=== PATIENT | female | born 1940 | race Caucasian/White ===

== ENCOUNTER 2019-09-09 07:17 | Inpatient (IN) ==
[2019-09-09] MEDS ORDERED: DUONEB (A & A) ONE (07:33)
[2019-09-09] MEDS ORDERED: DUONEB (A & A) INH ONE (07:44)
[2019-09-09] MEDS ORDERED: ALBUTEROL NEB INH ONE (07:44)
[2019-09-09] MEDS ORDERED: PULMICORT INH ONE (07:44)
[2019-09-09] MEDS ORDERED: NS 500 ML IV ONE (07:46)
[2019-09-09] MEDS ORDERED: VANCOMYCIN 1 GM/NS 1 GM/250 ML IVPB IV ONE (07:46)
[2019-09-09] MEDS ORDERED: MAXIPIME 2 GM in NS 100 ML IV ONE (07:46)
[2019-09-09] MEDS ORDERED: NS 1,000 ML IV ONE (07:46)
[2019-09-09 07:56] LABS: ALLEN TEST YES; BE -0.9 mmoll (-3.0-3.0); BLOOD TYPE ARTERIAL; HCO3-(ACT) 24.1 mmoll (20.0-26.0); METHB 0.4 % (0.0-1.5); O2(CT) 15.1 mL/dL (15.0-23.0); O2HB 90.8 % (95.0-99.0); PCO2(98.6) 37 mmHg (35-45); PO2(98.6) 61 mmHg (60-100); SAMPLE BLOOD; SAO2 92.4 % (95.0-100.0); THB 11.8 g/dL (11.5-17.4); pH(98.6) 7.41 (7.35-7.45)
[2019-09-09 07:57] LABS: MODALITY NRB
--- NOTE | 2019-09-09 08:01 | PROVIDER DOCUMENTATION ---
HPI-Respiratory General - General Chief Complaint: SEPSIS ALERT - D Stated Complaint: SOB Time Seen by Provider: 09/09/19 07:42 Source: patient Allergies/Adverse Reactions: Patient Allergies Allergy/AdvReac Type Severity Reaction Status Date / Time meperidine HCl * AdvReac Mild HALLUCINATI Verified 09/09/19 07:55 [From Demerol] ONS azithromycin AdvReac NAUSEA/VOMI Verified 09/09/19 07:55 [From Zithromax Z-Sixot] TING Home Medications: Home Medication List Medication Instructions Recorded Confirmed Last Taken Type Amlodipine [Norvasc] 5 mg PO BID 09/01/12 09/09/19 1 Day Ago History ~09/08/19 Aspirin/Calcium Carbonate/Mag 325 mg PO DAILY 09/01/12 09/09/19 1 Day Ago History [Aspirin Buffered 325 mg Tab] ~09/08/19 Celecoxib [Celebrex] 200 mg PO DAILY PRN PRN 09/01/12 09/09/19 1 Day Ago History ~09/08/19 Hydrocodone/Acetaminophen [Lortab 1 each PO PRN PRN 09/01/12 09/09/19 1 Day Ago History 5-500 Tablet] ~09/08/19 Metoprolol Succinate E.r. [Toprol 100 mg PO BID 09/01/12 09/09/19 1 Day Ago History Xl] ~09/08/19 Levothyroxine Sodium [Synthroid] 50 mcg PO DAILY 01/21/19 09/09/19 1 Day Ago History ~09/08/19 Clonazepam [Klonopin] 0.5 mg PO QAM 09/09/19 09/09/19 1 Day Ago History ~09/08/19 Gabapentin 300 mg PO TID 09/09/19 09/09/19 1 Day Ago History ~09/08/19 Methocarbamol 750 mg PO Q8H PRN 09/09/19 09/09/19 1 Day Ago History ~09/08/19 Omeprazole 40 mg PO QAM 09/09/19 09/09/19 1 Day Ago History ~09/08/19 - History of Present Illness-Resp Nature of Presenting Problem: Began with SOB yest. No fever, no cough. No CP. No abd pain, no N/V. Arrived by EMS, Hypoxic on RA, has hx of ARDs, but no CHF, no COPD. Is former smoker. Nothing makes better, worsened by activity Severity in ED: reports: moderate Onset/Duration: reports: gradual Timing: reports: getting worse Exposure: reports: unknown cause Review of Systems - Adult - REVIEW OF SYSTEMS - ADULT Constitutional: reports: no symptoms reported Eyes: reports: no symptoms reported Ears, Nose, Mouth & Throat: reports: no symptoms reported Cardiovascular: reports: no symptoms reported Respiratory: reports: see HPI Gastrointestinal: reports: no symptoms reported Genitourinary: reports: no symptoms reported Musculoskeletal: reports: no symptoms reported Integumentary: reports: no symptoms reported Neurological: reports: no symptoms reported Psychiatric: reports: no symptoms reported Endocrine: reports: no symptoms reported Hematologic/Lymphatic: reports: no symptoms reported Allergic/Immunologic: reports: no symptoms reported Past History - Adult - PAST MEDICAL HISTORY-ADULT Review of Records: reports: Medications Reviewed Major Childhood Illnesses: reports: denies history Cardiovascular: reports: cardiac disease, HTN, [place] Respiratory: reports: other (ARDS) Gastrointestinal: reports: denies history Obstetrical/Gynecological: reports: denies history Genitourinary: reports: denies history Musculoskeletal: reports: arthritis Neurological: reports: denies history Endocrine/Immune: reports: thyroid disorder Other Conditions: reports: denies history - PRIOR SURGERIES/PROCEDURES Surgical/Procedure History: reports: hysterectomy - IMMUNIZATION STATUS Childhood Immunizations: See Nurse Assessment Flu Vaccine: See Nurse Assessment - FAMILY HISTORY Family History: reviewed, not pertinent Physical Exam-General - PHYSICAL EXAM-ADULT Initial Vital Signs Reviewed: Yes - CONSTITUTIONAL General Appearance: alert, mild distress - EYES Eyes: PERRL/EOMI, pink conjunctivae - HEAD, EARS, NOSE, MOUTH & THROAT HENMT: normocephalic/atraumatic, moist mucous membranes, normal ENT inspection, pharynx normal - NECK Neck: full range of motion, supple, normal inspection - RESPIRATORY Respiratory: chest non-tender, lungs clear, no pleuratic chest pain, respiratory distress (mild), decreased breath sounds (slight) - CARDIOVASCULAR Cardiovascular: normal peripheral pulses, regular rate, rhythm, no edema - GASTROINTESTINAL (ABDOMEN) Abdominal Exam: non tender, soft - MUSCULOSKELETAL Back Exam: normal inspection, no CVA tenderness, no vertebral tenderness Extremity: normal range of motion, non-tender, normal inspection - SKIN Integumentary: normal color, normal turgor, warm/dry - NEUROLOGIC Neurologic: primary products inspectors II-XII nml as tested, grossly normal, no motor/sensory deficits - PSYCHIATRIC Psych/Mental Status: normal mood/affect, normal thought content, normal thought process, oriented x 3 - HEART Score HEART Score: History: Slightly Suspicious HEART Score: ECG: Non-Specific Repolarization Disturbance/LBBB/PM HEART Score: Age: > or = 65 Years HEART Score: Risk Factors for Atherosclerotic Disease: > or = 3 Risk Factors or History of Atherosclerotic Disease HEART Score: Troponin: < or = Normal Limit Total HEART Score:: 5 Progress - PLAN OF CARE/RESULTS Progress/Plan/Lab Results: Vital Signs - 8 hr 09/09/19 07:19 09/09/19 07:51 09/09/19 08:00 Temperature 98.1 F 98 F Pulse Rate 83 83 90 Respiratory Rate 32 H 24 24 Blood Pressure 191/84 184/85 O2 Sat by Pulse Oximetry 86 L 98 94 L Laboratory Results - last 24 hr 09/09/19 09/09/19 09/09/19 07:40 07:45 07:45 WBC 18.03 H RBC 4.35 Hgb 10.5 L Hct 34.4 L MCV 79.1 L MCH 24.1 L MCHC 30.5 L RDW Std Deviation 14.8 H Plt Count 396 MPV 10.5 H Immature Gran % (Auto) 0.4 Neut % (Auto) 76.7 H Lymph % (Auto) 9.0 L [place] % (Auto) 10.8 H Eos % (Auto) 2.9 Baso % (Auto) 0.2 Immature Gran # (Auto) 0.07 H Neut # (Auto) 13.84 H Lymph # (Auto) 1.62 [place] # (Auto) 1.94 H Eos # (Auto) 0.52 Baso # (Auto) 0.04 Segmented Neutrophils 86 H Band Neutrophils 2 H Lymphocytes 4 L Monocytes 6 Eosinophils 2 PT INR PTT (Actin FS) Specimen Type ARTERIAL Sample Site R RADIAL pH 7.41 pCO2 37 pO2 61 HCO3 24.1 Base Excess -0.9 Oxyhemoglobin 90.8 L ABG O2 Sat (Calculated) 15.1 ABG O2 Saturation 92.4 L ABG Carboxyhemoglobin 1.20 ABG Methemoglobin 0.4 Mathieu Test YES A-a O2 Difference 606.0 Total Hemoglobin 11.8 Lactate 0.90 Liter Flow 15.0 Blood Gas Modality NRB FiO2 % 100.0 Sodium 137 Potassium 4.4 Chloride 100 Carbon Dioxide 22 L Anion Gap 15 BUN 22 Creatinine 1.1 H Estimated GFR/1.73 m2 48 BUN/Creatinine Ratio 20 Glucose 206 H Calculated Osmolality 283 Calcium 8.8 Total Bilirubin 0.37 AST 18 ALT 8 L Alkaline Phosphatase 130 H Creatine Kinase 45 Troponin T Total Protein 6.4 Albumin 3.9 Globulin 2.5 Albumin/Globulin Ratio 1.6 Plasma Lactate Urine Source Urine Color Urine Turbidity Urine pH Ur Specific [place] Urine Protein Ur Glucose (Stick) Ur Ketones (Stick) Urine Blood Urine Nitrite Urine Bilirubin Urobilinogen Dipstick Urine Leukocytes Urine WBC (Auto) Urine RBC (Auto) U Epithel Cells (Auto) Urine Bacteria (Auto) 09/09/19 09/09/19 09/09/19 07:45 07:45 07:45 WBC RBC Hgb Hct MCV MCH MCHC RDW Std Deviation Plt Count MPV Immature Gran % (Auto) Neut % (Auto) Lymph % (Auto) [place] % (Auto) Eos % (Auto) Baso % (Auto) Immature Gran # (Auto) Neut # (Auto) Lymph # (Auto) [place] # (Auto) Eos # (Auto) Baso # (Auto) Segmented Neutrophils Band Neutrophils Lymphocytes Monocytes Eosinophils PT 14.5 INR 1.11 PTT (Actin FS) 46.9 H Specimen Type Sample Site pH pCO2 pO2 HCO3 Base Excess Oxyhemoglobin ABG O2 Sat (Calculated) ABG O2 Saturation ABG Carboxyhemoglobin ABG Methemoglobin Mathieu Test A-a O2 Difference Total Hemoglobin Lactate Liter Flow Blood Gas Modality FiO2 % Sodium Potassium Chloride Carbon Dioxide Anion Gap BUN Creatinine Estimated GFR/1.73 m2 BUN/Creatinine Ratio Glucose Calculated Osmolality Calcium Total Bilirubin AST ALT Alkaline Phosphatase Creatine Kinase Troponin T < 0.010 Total Protein Albumin Globulin Albumin/Globulin Ratio Plasma Lactate 1.0 Urine Source Urine Color Urine Turbidity Urine pH Ur Specific [place] Urine Protein Ur Glucose (Stick) Ur Ketones (Stick) Urine Blood Urine Nitrite Urine Bilirubin Urobilinogen Dipstick Urine Leukocytes Urine WBC (Auto) Urine RBC (Auto) U Epithel Cells (Auto) Urine Bacteria (Auto) 09/09/19 08:40 WBC RBC Hgb Hct MCV MCH MCHC RDW Std Deviation Plt Count MPV Immature Gran % (Auto) Neut % (Auto) Lymph % (Auto) [place] % (Auto) Eos % (Auto) Baso % (Auto) Immature Gran # (Auto) Neut # (Auto) Lymph # (Auto) [place] # (Auto) Eos # (Auto) Baso # (Auto) Segmented Neutrophils Band Neutrophils Lymphocytes Monocytes Eosinophils PT INR PTT (Actin FS) Specimen Type Sample Site pH pCO2 pO2 HCO3 Base Excess Oxyhemoglobin ABG O2 Sat (Calculated) ABG O2 Saturation ABG Carboxyhemoglobin ABG Methemoglobin Mathieu Test A-a O2 Difference Total Hemoglobin Lactate Liter Flow Blood Gas Modality FiO2 % Sodium Potassium Chloride Carbon Dioxide Anion Gap BUN Creatinine Estimated GFR/1.73 m2 BUN/Creatinine Ratio Glucose Calculated Osmolality Calcium Total Bilirubin AST ALT Alkaline Phosphatase Creatine Kinase Troponin T Total Protein Albumin Globulin Albumin/Globulin Ratio Plasma Lactate Urine Source CATH Urine Color YELLOW Urine Turbidity CLEAR Urine pH 6.0 Ur Specific [place] 1.015 Urine Protein 100 A Ur Glucose (Stick) TRACE Ur Ketones (Stick) NEGATIVE Urine Blood NEGATIVE Urine Nitrite NEGATIVE Urine Bilirubin NEGATIVE Urobilinogen Dipstick NORMAL Urine Leukocytes NEGATIVE Urine WBC (Auto) <10 Urine RBC (Auto) <10 U Epithel Cells (Auto) <10 Urine Bacteria (Auto) NEGATIVE Orders Category Date Time Status Cardiac Monitoring DIRECTED Care 09/09/19 07:32 Active Chambers Cath Insertion ORDERED Care 09/09/19 07:47 Active IV Insertion ORDERED Care 09/09/19 07:32 Active IV Insertion ORDERED Care 09/09/19 07:47 Active Intake and Output-Strict ORDERED Care 09/09/19 07:47 Active Notify MD of + Sepsis Screen NOW Care 09/09/19 07:32 Active Notify Physician As Ordered Care 09/09/19 07:32 Active Repeat Vital Signs .Blood Pressure Care 09/09/19 07:47 Active Repeat Vital Signs .Heart Rate Care 09/09/19 07:47 Active Repeat Vital Signs .Oxygen Saturation Care 09/09/19 07:47 Active Repeat Vital Signs .Respiratory Rate Care 09/09/19 07:47 Active Repeat Vital Signs .Temp Care 09/09/19 07:47 Active CHEST-1 VIEW [RAD] Stat Exams 09/09/19 07:32 Completed ABG [RESP] Routine Lab 09/09/19 07:40 Completed BLOOD CULTURE [BLDCUL] Stat Lab 09/09/19 08:00 Received BNP [PRO B-NATRIURETIC PEPTIDE] Stat Lab 09/09/19 07:45 Received CBC WITH DIFF [HEME] Stat Lab 09/09/19 07:45 Completed CK PROFILE [SP CHEM] Stat Lab 09/09/19 07:45 Completed COMPREHENSIVE METABOLIC PANEL [CHEM] Stat Lab 09/09/19 07:45 Completed LACTATE, PLASMA [CHEM] Lab 09/09/19 10:45 Uncollected LACTATE, PLASMA [CHEM] Lab 09/09/19 13:45 Uncollected LACTATE, PLASMA [CHEM] Q3H Lab 09/09/19 07:45 Completed PROTIME WITH INR [COAG] Stat Lab 09/09/19 07:45 Completed PTT [COAG] Stat Lab 09/09/19 07:45 Completed TROPONIN T Stat Lab 09/09/19 07:45 Completed URINALYSIS W/POSS RFLX CULT [URINALYSIS] Stat Lab 09/09/19 08:40 Completed 0.9% Sodium Chloride Inj [Ns] 1,000 ml Med 09/09/19 07:46 Discontinued IV As Directed mls/hr 0.9% Sodium Chloride Inj [Ns] 500 ml Med 09/09/19 07:46 Discontinued IV 999 mls/hr Albuterol 2.5MG/Ipratrop 0.5MG [Duoneb (A & A)] Med 09/09/19 07:33 Discontinued 3 ml .ROUTE .STK-MED ONE Albuterol 2.5MG/Ipratrop 0.5MG [Duoneb (A & A)] Med 09/09/19 07:44 Discontinued 3 ml INH NOW ONE Albuterol [Albuterol Neb] Med 09/09/19 07:44 Discontinued 5 mg INH NOW ONE Budesonide [Pulmicort] Med 09/09/19 07:44 Discontinued 0.5 mg INH NOW ONE CefEPIME [Maxipime] 2 gm Med 09/09/19 07:46 Discontinued 0.9% Sodium Chloride Inj [Ns] 100 ml IV NOW Furosemide [Lasix] Med 09/09/19 08:47 Discontinued 40 mg IV NOW ONE Vancomycin 1 gm/Ns Med 09/09/19 07:46 Discontinued 1 gm in 250 ml IV NOW Aerosol Treatments Routine Oth 09/09/19 07:45 Completed Aerosol Treatments Stat Oth 09/09/19 07:45 Completed Oxygen Device Stat Oth 09/09/19 07:32 Completed EKG [EKG] Stat Ther 09/09/19 07:35 Ordered Result Diagrams: 09/09/19 07:45 09/09/19 07:45 - CONSULTS/PCP/HOSPITALIST Notification Time Discussed: 09:03 Consult Disposition: Will see in ED Departure - Departure Date of Disposition Decision: 09/09/19 Time of Disposition Decision: 08:00 DIAGNOSIS: Respiratory distress Left lower lobe pneumonia Qualifiers: Pneumonia type: due to unspecified organism Qualified Code(s): J18.1 - Lobar pneumonia, unspecified organism Disposition: ADMITTED INPATIENT 09 Certified Medical Emergency: Emergent Condition: Stable Referrals and Follow-Ups: Denzel Donis MD [Primary Care Provider] - - Critical Care Note This patient required my direct & personal management of CC.: No Attestation - Physician/ DAVID Attestation Patient care was provided by Advanced Practice Provider:: No The physician spent face to face time with patient:: Yes Advanced Practice Provider documentation review:: Supervising physician onsite and consulted in the evaluation and care of this patient. The physician did have a face to face encounter with the patient.
--- NOTE | 2019-09-09 08:02 | ED EKG INTERP ---
This chart was entered by Dillon Brown Scribe, acting as scribe for Doug Miramontes MD. EKG Interpretation - EKG Time of EKG reading by physician:: 07:28 EKG Read and Signed by:: Doug Miramontes EKG Interpretation (*Must complete 3 of following elements*): Abnormal Rate: 91 Rhythm: NSR [place]: normal QRS: normal OR Interval: normal ST Wave: normal Comments: ST &T wave abnormality, consider lateral ischemia Attestation - Physician/ DAVID Attestation Patient care was provided by Advanced Practice Provider:: No The physician spent face to face time with patient:: Yes Advanced Practice Provider documentation review:: Supervising physician onsite and consulted in the evaluation and care of this patient. The physician did have a face to face encounter with the patient. This chart was documented by the indicated scribe, (Dillon Brown, Anahy) and accurately reflects the services I performed and decisions made by me, Doug Miramontes MD, as attested by the provider's signature.
--- NOTE | 2019-09-09 08:07 | Diag Imaging Result Doc PS360 ---
EXAM: CHEST-1 VIEW HISTORY: SOB TECHNIQUE: Chest single view COMPARISON: 10/15/2014 FINDINGS: The lungs are well expanded. The heart is not enlarged. The vessels are distended. There are no infiltrates. No effusion identified. IMPRESSION: Pulmonary edema. There may be underlying pneumonia as well. Electronically signed by Arpan Ochoa 09/09/2019 8:04 AM
[2019-09-09 08:21] LABS: INR 1.11; PROTIME 14.5 Seconds (11.0-16.0)
[2019-09-09 08:22] LABS: PTT 46.9 Seconds (22.3-41.8)
[2019-09-09 08:27] LABS: BASO# 0.04 X1000 (0.0-0.2); BASO% 0.2 % (0.0-0.8); EOS# 0.52 X1000 (0.0-0.7); EOS% 2.9 % (0.0-10.0); HEMATOCRIT 34.4 % (37.0-47.0); HEMOGLOBIN 10.5 g/dL (12.0-16.0); IMM GRAN# 0.07 X1000 (0.0-0.04); IMM GRAN% 0.4 % (0.0-0.5); LYMPH# 1.62 X1000 (1.2-3.4); MCH 24.1 PG (27-31); MCHC 30.5 g/dL (33-37); MCV 79.1 FL (81-99); MONO# 1.94 X1000 (0.11-0.59); MONO% 10.8 % (1.7-9.3); MPV 10.5 FL (7.4-10.4); NEUT# 13.84 X1000 (1.4-6.5); NEUT% 76.7 % (42.2-75.2); PLT 396 X1000 (130-400); RBC 4.35 XMIL (4.2-5.4); RDW 14.8 % (11.5-14.5); WBC 18.03 X1000 (4.8-10.8)
[2019-09-09 08:29] LABS: ALB/GLOB RATIO 1.6; ALBUMIN 3.9 g/dL (3.5-5.0); CALCIUM 8.8 mg/dL (8.8-10.2); CREATININE 1.1 mg/dL (0.5-0.9); POTASSIUM 4.4 mmol/L (3.5-5.1); TOTAL BILIRUBIN 0.37 mg/dL (0.20-1.00); TOTAL PROTEIN 6.4 g/dL (6.3-8.3)
[2019-09-09 08:37] LABS: BANDS 2 % (0-1); EOS 2 % (1-10); LYMPHS 4 % (21-51); MONO 6 % (1-9); SEGS 86 % (42-75)
[2019-09-09] MEDS ORDERED: LASIX IV ONE (08:47)
[2019-09-09 08:50] LABS: URINE SOURCE CATH
[2019-09-09 08:53] LABS: BILIRUBIN URINE NEGATIVE (NEGATIVE); BLOOD URINE NEGATIVE (NEGATIVE); COLOR YELLOW; GLUCOSE URINE TRACE mg/dL (NEGATIVE); KETONE URINE NEGATIVE (NEGATIVE); LEUKOCYTES URINE NEGATIVE (NEGATIVE); NITRITE URINE NEGATIVE (NEGATIVE); PROTEIN URINE 100 mg/dL (NEGATIVE); SP GRAVITY URINE 1.015; TURBIDITY URINE CLEAR (CLEAR); UROBILINOGEN URINE NORMAL (NORMAL)
[2019-09-09 08:54] LABS: UR EPITHELIAL CELLS <10 /HPF (<10); URINE BACTERIA NEGATIVE /HPF; URINE RBC <10 /HPF (<10); URINE WBC <10 /HPF (<10)
[2019-09-09] MEDS ORDERED: ROBAXIN PO PRN (10:22)
--- NOTE | 2019-09-09 10:53 | HISTORY AND PHYSICAL ---
HISTORY OF PRESENT ILLNESS: This is a 79-year-old patient of Dr. Denzel Donis. She presents, says she got short of breath that started yesterday afternoon, got worse this morning. She just could not get her breath. She denies any previous history of this. Denies any history of orthopnea, paroxysmal nocturnal dyspnea, pedal edema. No chest pain. No palpitations. PAST MEDICAL HISTORY: 1. Hypertension. 2. Coronary artery disease. Apparently had a heart attack. 3. Ruptured colon followed by acute respiratory distress syndrome. 4. History of gastroesophageal reflux disease. 5. History of primary hypothyroidism. 6. I believe she had a heart attack in the . SURGICAL HISTORY: Had 2 back surgeries, 1 on her neck. She had colon rupture, so colon repair and colectomy I am sure. Carpal tunnel repair, left leg surgery for vascular surgery not sure of the details of the bilateral knee. She has had her right knee total knee arthroplasty I believe. At least she has had right knee surgery, and she is planning a left knee surgery. SOCIAL HISTORY: She quit smoking in 1994. Negative for alcohol. No illicit drugs. FAMILY HISTORY: Father and mother with history of heart problems. REVIEW OF SYSTEMS: General: No weight gain or loss. No fever or chills. HEENT: Unremarkable. Respiratory: She says she was breathing fine until yesterday afternoon, and has had increased dyspnea even at rest. Cardiovascular: No chest pain or tachy palpitation. GI/: Unremarkable. Musculoskeletal/Neurologic: No significant complaints. Endocrinologic/Hematologic: No significant history. PHYSICAL EXAMINATION: VITAL SIGNS: Temperature 98.0 degrees, pulse 79, respirations 18, blood pressure 173/71. EYES: Pupils are equal and round. LUNGS: Lungs with rales at the bases anterolateral. CARDIOVASCULAR EXAM: Regular rhythm and rate without murmur or S3. CVP appeared to be about 10 cm from the sternal notch. PMI nondisplaced. ABDOMEN: Soft, nondistended. No hepatosplenomegaly. EXTREMITIES: No pedal edema. SKIN: No sign of skin rashes. ORAL AND NASAL MUCOSA: Without rash or lesions. NECK: Supple. No thyromegaly. No adenopathy. LABORATORY DATA: White count 18,030, hematocrit is 34, platelet count 396,000. Sodium 137, potassium 4.4, chloride 100. BUN 22, creatinine 1.1. AST is 18, ALT is 8, alkaline phos was 130. Pro time 14.5, INR is 1.1. Urinalysis unremarkable. Blood gases: A pH is 7.41, pCO2 was 37, PO2 61, O2 saturation 90%. X-RAY DATA: Chest x-ray: Pulmonary edema, maybe underlying pneumonia. ASSESSMENT AND PLAN: 1. Appears to have pulmonary venous hypertension and very possibly has pneumonia as well. We will watch her blood pressure, try and get her blood pressure down, averaged below 150/90. We will diurese her, give her Lasix 40 mg intravenous every 12 hours, and we will check an echocardiogram to look at left ventricular function. 2. History of coronary artery disease status post myocardial infarction. She has not had coronary artery bypass graft. 3. She had a ruptured colon, and I think prolonged hospital course with acute respiratory distress syndrome. 4. Gastroesophageal reflux. 5. History of primary hypothyroidism. CURRENT MEDICATION: 1. Norvasc 5 mg b.i.d. 2. Aspirin 325 mg a day. 3. Celebrex 200 mg a day. 4. Klonopin 0.5 mg q.a.m. 5. Gabapentin 300 mg t.i.d. 6. Lortab 5/500 one p.o.; I guess takes that as needed for pain. 7. Synthroid 50 mcg a day. 8. Methocarbamol. I guess that is for muscle relaxant 750 mg q. 8 hours p.r.n. 9. Metoprolol ER 100 mg p.o. b.i.d. 10. Omeprazole 40 mg daily. 11. I am going to add lisinopril 10 mg twice a day. cc: Mathieu Najera MD
[2019-09-09] MEDS: DUONEB (A & A) INH SCH ×4 (11:32→23:09)
[2019-09-09] MEDS: NEURONTIN PO SCH ×2 (13:53→16:25)
[2019-09-09] MEDS ORDERED: FLU VACCINE IM ONE (15:27)
[2019-09-09] MEDS: NORCO-5 PO PRN ×2 (16:30→21:09)
--- NOTE | 2019-09-09 17:26 | EKG Report ---
Test Performed on : 09/09/2019 07:28:59 AM Test Reason : SOB Blood Pressure : / mmHG Vent. Rate : 091 BPM Atrial Rate : 091 BPM P-R Int : 202 ms QRS Dur : 104 ms QT Int : 378 ms P-R-T Axes : 044 -20 095 degrees QTc Int : 464 ms Normal sinus rhythm. ST & T wave abnormality, consider lateral ischemia Abnormal ECG When compared with ECG of 24-MAY-2018 10:35, ST more depressed in Lateral leads T wave inversion no longer evident in Inferior leads T wave inversion less evident in Lateral leads Unconfirmed Result
[2019-09-09] MEDS: NORVASC PO SCH (21:09)
[2019-09-09] MEDS: TOPROL XL PO SCH (21:10)
[2019-09-09] MEDS: LASIX IV SCH (21:10)
[2019-09-09] MEDS: KLONOPIN PO SCH (21:26)
[2019-09-09] MEDS ORDERED: BLISTEX MEDICATED BERRY LIP BALM TOP PRN (23:53)
--- NOTE | 2019-09-10 00:16 | ECHO REPORT ---
ORDER DATE: 09/09/2019 MEASUREMENTS: Septal thickness 1.3, left ventricular internal diameter in diastole 5.0, posterior wall thickness 0.9, aortic root 3.0, left atrium 4.3. SUMMARY: 1. Technically difficult study due to limited acoustic window quality. 2. Aortic valve is trileaflet and opens adequately on 2-dimensional images. Peak gradient across aortic valve is less than 10 mmHg. Mitral and tricuspid valves are without evidence of structural abnormality while pulmonic valve is not well demonstrated. There is moderate mitral regurgitation and mild tricuspid regurgitation. Estimated systolic PA pressure by Doppler is 50 mmHg, suggesting moderate pulmonary hypertension. Aortic root is normal in size. 3. Normal left ventricular dimensions demonstrated. Estimated left ventricular ejection fraction appears to be at least 60%. No regional wall motion abnormalities are evident. Left atrium is mildly enlarged. The right atrium and right ventricle are in normal size with grossly preserved right ventricular systolic function. 4. No pericardial effusion. 5. Inferior vena cava is mildly dilated suggesting mild level elevated central venous pressure. CONCLUSION: 1. Technically difficult study. 2. Moderate mitral regurgitation. 3. Mild tricuspid regurgitation with moderate pulmonary hypertension by Doppler. 4. Estimated left ejection fraction at least 60%. 5. Mild left atrial enlargement. 6. Mild elevation in central venous pressure suggested. cc: MD Leti Murillo CRNP
[2019-09-10] MEDS: ROBAXIN PO PRN ×3 (03:19→19:17)
[2019-09-10] MEDS: NORCO-5 PO PRN ×5 (03:19→23:35)
[2019-09-10] MEDS: DUONEB (A & A) INH SCH ×6 (03:41→22:53)
[2019-09-10] MEDS: SYNTHROID PO SCH ×2 (05:48→06:12)
[2019-09-10 06:19] LABS: BASO# 0.02 X1000 (0.0-0.2); BASO% 0.2 % (0.0-0.8); EOS# 0.22 X1000 (0.0-0.7); HEMATOCRIT 32.3 % (37.0-47.0); HEMOGLOBIN 9.8 g/dL (12.0-16.0); IMM GRAN# 0.03 X1000 (0.0-0.04); IMM GRAN% 0.3 % (0.0-0.5); LYMPH% 11.6 % (20.5-51.1); MCHC 30.3 g/dL (33-37); MCV 79.2 FL (81-99); MONO# 1.39 X1000 (0.11-0.59); MONO% 12.4 % (1.7-9.3); MPV 10.3 FL (7.4-10.4); NEUT# 8.24 X1000 (1.4-6.5); NEUT% 73.5 % (42.2-75.2); PLT 350 X1000 (130-400); RBC 4.08 XMIL (4.2-5.4); RDW 14.5 % (11.5-14.5)
[2019-09-10 06:44] LABS: ALB/GLOB RATIO 1.1; ALBUMIN 3.4 g/dL (3.5-5.0); POTASSIUM 3.3 mmol/L (3.5-5.1); TOTAL BILIRUBIN 0.43 mg/dL (0.20-1.00); TOTAL PROTEIN 6.5 g/dL (6.3-8.3)
[2019-09-10] MEDS ORDERED: KLONOPIN PO SCH (09:00)
[2019-09-10 09:27] LABS: ALLEN TEST NO; BE 4.5 mmoll (-3.0-3.0); BLOOD TYPE ARTERIAL; HCO3-(ACT) 28.3 mmoll (20.0-26.0); METHB 0.4 % (0.0-1.5); O2(CT) 13.6 mL/dL (15.0-23.0); O2HB 91.1 % (95.0-99.0); PCO2(98.6) 38 mmHg (35-45); PO2(98.6) 56 mmHg (60-100); SAMPLE BLOOD; SAO2 92.2 % (95.0-100.0); THB 10.6 g/dL (11.5-17.4); pH(98.6) 7.48 (7.35-7.45)
--- NOTE | 2019-09-10 09:27 | PROGRESS NOTE ---
DATE: 09/10/2019 SUBJECTIVE: Ms. Brewer still feels like she is short of breath, but overall feels like she is doing better. OBJECTIVE: Vital Signs: Temp 98.8 degrees, pulse 92, respirations 17, blood pressure 163/74. Lungs: Clear anterolateral. Cardiovascular: Regular rhythm and rate without murmur or S3. Abdomen: Soft. Skin: Warm and dry. IMAGING: She had an echocardiogram with Doppler done yesterday. Technically difficult study. Moderate mitral regurgitation. Mild tricuspid regurgitation with moderate pulmonary hypertension. Estimated left ventricular ejection fraction of 60%. Mild left atrial enlargement. Mild elevation in central venous pressure. ASSESSMENT AND PLAN: 1. Appears to have pulmonary venous hypertension, possibly underlying pneumonia. Will continue to give her Lasix and diurese her some. 2. History of coronary artery disease. I do not think there is any active ischemia at this point, but we will obviously want to rule that out. 3. History of ruptured colon in the distant past, prolonged hospital course with acute respiratory distress syndrome. 4. Gastroesophageal reflux. 5. History of primary hypothyroidism. We have her on her Synthroid. REVIEW OF ORDERS: She is on Klonopin 0.5 mg at bedtime, she is on Norvasc 5 mg b.i.d., aspirin 325 mg a day, Lovenox 40 mg subcutaneously daily, Lasix 40 mg IV every 12 hours, Synthroid 25 mcg (I think she takes that every 48 hours alternating with 50 mg every other day), she said she took some Robaxin that seemed to help her back and shoulder pain, metoprolol 100 mg p.o. b.i.d., Prilosec 40 mg a day, we have her on cefepime 2 grams IV (she got 1 dose yesterday), and she got 1 dose of vancomycin. On her x-ray, there may be some underlying pneumonia. I am going to keep her on Rocephin, but continue diuresis. I think the main problem is pulmonary venous hypertension. cc: Mathieu Najera MD
[2019-09-10 09:30] LABS: MODALITY VENTIMASK
[2019-09-10] MEDS: PRILOSEC PO SCH (10:08)
[2019-09-10] MEDS: ROCEPHIN 1 GM in NS 50 ML IV SCH (10:08)
[2019-09-10] MEDS: TOPROL XL PO SCH ×2 (10:09→21:00)
[2019-09-10] MEDS: NORVASC PO SCH ×2 (10:11→21:00)
[2019-09-10] MEDS: ASPIRIN EC PO SCH (10:13)
[2019-09-10] MEDS: NEURONTIN PO SCH ×3 (10:13→16:16)
[2019-09-10] MEDS: LOVENOX SUBQ SCH (10:13)
[2019-09-10] MEDS: LASIX IV SCH ×2 (10:13→21:00)
[2019-09-10 13:21] LABS: CALCIUM 9.3 mg/dL (8.8-10.2)
--- NOTE | 2019-09-10 13:34 | Diag Imaging Result Doc PS360 ---
EXAM: CHEST-2 VIEWS HISTORY: Pneumonia TECHNIQUE: Two views COMPARISON: None. FINDINGS: The lungs are hyperexapnded expanded. The heart is mildly enlarged. The vessels are not distended. There are no infiltrates. Tiny pleural effusions. IMPRESSION: Emphysema and small effusions. Electronically signed by Arpan Ochoa 09/10/2019 1:31 PM
[2019-09-10] MEDS: KLONOPIN PO SCH (20:59)
[2019-09-11] MEDS: DUONEB (A & A) INH SCH ×6 (03:36→23:04)
[2019-09-11] MEDS: ROBAXIN PO PRN ×2 (03:56→16:53)
[2019-09-11] MEDS: NORCO-5 PO PRN ×4 (03:59→20:47)
[2019-09-11 04:57] LABS: ALLEN TEST YES; BE 5.8 mmoll (-3.0-3.0); BLOOD TYPE ARTERIAL; HCO3-(ACT) 29.4 mmoll (20.0-26.0); METHB 0.8 % (0.0-1.5); O2(CT) 13.5 mL/dL (15.0-23.0); O2HB 94.1 % (95.0-99.0); PO2(98.6) 78 mmHg (60-100); SAMPLE BLOOD; SAO2 95.2 % (95.0-100.0); THB 10.1 g/dL (11.5-17.4)
[2019-09-11 05:06] LABS: MODALITY NRB; PCO2(98.6) 51 mmHg (35-45)
[2019-09-11] MEDS: SYNTHROID PO SCH ×2 (05:23→06:04)
[2019-09-11 06:08] LABS: BASO# 0.01 X1000 (0.0-0.2); BASO% 0.1 % (0.0-0.8); EOS% 8.9 % (0.0-10.0); HEMATOCRIT 30.8 % (37.0-47.0); HEMOGLOBIN 9.1 g/dL (12.0-16.0); IMM GRAN# 0.02 X1000 (0.0-0.04); IMM GRAN% 0.2 % (0.0-0.5); LYMPH# 1.51 X1000 (1.2-3.4); LYMPH% 16.9 % (20.5-51.1); MCH 23.6 PG (27-31); MCHC 29.5 g/dL (33-37); MCV 79.8 FL (81-99); MONO# 1.12 X1000 (0.11-0.59); MONO% 12.5 % (1.7-9.3); MPV 10.3 FL (7.4-10.4); NEUT# 5.48 X1000 (1.4-6.5); NEUT% 61.4 % (42.2-75.2); PLT 358 X1000 (130-400); RBC 3.86 XMIL (4.2-5.4); RDW 14.7 % (11.5-14.5); WBC 8.94 X1000 (4.8-10.8)
[2019-09-11 07:13] LABS: ALB/GLOB RATIO 0.8; ALBUMIN 2.8 g/dL (3.5-5.0); CREATININE 1.4 mg/dL (0.5-0.9); POTASSIUM 3.8 mmol/L (3.5-5.1); TOTAL BILIRUBIN 0.25 mg/dL (0.20-1.00); TOTAL PROTEIN 6.1 g/dL (6.3-8.3)
[2019-09-11 08:31] LABS: CALCIUM 8.7 mg/dL (8.8-10.2)
[2019-09-11] MEDS: NORVASC PO SCH ×2 (09:18→20:48)
[2019-09-11] MEDS: ROCEPHIN 1 GM in NS 50 ML IV SCH (09:18)
[2019-09-11] MEDS: LASIX IV SCH ×2 (09:18→20:48)
[2019-09-11] MEDS: PRILOSEC PO SCH (09:19)
[2019-09-11] MEDS: NEURONTIN PO SCH ×3 (09:19→16:53)
[2019-09-11] MEDS: TOPROL XL PO SCH ×2 (09:19→20:48)
[2019-09-11] MEDS: ASPIRIN EC PO SCH (09:19)
[2019-09-11] MEDS: LOVENOX SUBQ SCH (09:20)
--- NOTE | 2019-09-11 09:54 | Diag Imaging Result Doc PS360 ---
CHEST-PORTABLE - 09/11/2019 INDICATION: pulmonary venous HTN COMPARISON: 09/10/2019 FINDINGS: There is new ill-defined reticulonodular interstitial infiltrate in the right upper lobe. Lung volumes are low. There is scattered linear atelectasis in the lung bases similar to prior. Heart size and pulmonary vascularity is normal. No large pleural effusion. IMPRESSION: New interstitial infiltrate in the right upper lobe compatible with pulmonary edema or atypical pneumonia. Electronically signed by Alex Mancuso 09/11/2019 9:52 AM
--- NOTE | 2019-09-11 13:59 | PROGRESS NOTE ---
DATE: 09/11/2019 SUBJECTIVE: Patient was admitted on 09/09. She came in mainly complaining of shortness of breath, and just could not get her breath. She has a history of hypertension, coronary artery disease, ruptured colon, acute respiratory distress syndrome, history of gastroesophageal reflux disease, and history of primary hypothyroidism. She had a heart attack back in the . She has had 2 back surgeries and 1 on her cervical vertebrae, carpal tunnel repair, left leg surgery for some type of vascular surgery, and right knee total arthroplasty. They are planning on thinking about doing the left knee. She still is short of breath. She has a significant AA gradient. I think we probably ought to either do a V/Q scan or a pulmonary arteriogram. LABORATORY: Sodium 134, potassium 3.8, chloride 95, BUN 24, creatinine 1.4, and creatinine went up from 1.0. ASSESSMENT AND PLAN: 1. It appears that she had pulmonary venous hypertension and possibly underlying pneumonia. Seems like this was a fairly quick event. I am going to ask Pulmonary to see. I do not know if we ought to do a V/Q scan versus pulmonary arteriogram, but there has been a pretty significant change, and it came on fairly quickly. 2. History of coronary artery disease. I do not see any sign of active cardiac ischemia. 3. She has some underlying COPD and appears she has some pulmonary hypertension. We are treating her for pneumonia. 4. History of primary hypothyroidism. Continue current orders. Continue supplementary O2. I do not see evidence of bronchospasm. She still feels short of breath. Her blood gases pH was 7.4, pCO2 51, PO2 was 78, O2 saturations 94%. I am going to ask Pulmonary to see. I do not know if she is empirically anticoagulated. I would like to have definitive evidence. I guess we could do a V/Q scan. I do not know how accurate or sensitive that will be. cc: Mathieu Naejra MD
[2019-09-11 14:59] LABS: ALLEN TEST YES; BE 4.1 mmoll (-3.0-3.0); BLOOD TYPE ARTERIAL; O2(CT) 13.1 mL/dL (15.0-23.0); PCO2(98.6) 41 mmHg (35-45); PO2(98.6) 52 mmHg (60-100); SAMPLE BLOOD; SAO2 90.9 % (95.0-100.0); THB 10.4 g/dL (11.5-17.4); pH(98.6) 7.45 (7.35-7.45)
[2019-09-11 15:01] LABS: MODALITY CANNULA; O2HB 89.3 % (95.0-99.0)
--- NOTE | 2019-09-11 16:00 | Diag Imaging Result Doc PS360 ---
EXAM: LUNG SCAN / VQ 09/11/2019 HISTORY: hypoxemia TECHNIQUE: Ventilation/perfusion lung scan, 41.5 mCi of technetium 99m DTPA aerosol and 5.8 mCi of technetium 99m MAA COMMENT: There is no evidence of ventilation/perfusion mismatch. There is slightly inhomogeneous distribution of perfusion activity in the lung bases. No absolute perfusion defects are present however. There are bibasilar atelectatic changes seen on the recent chest radiograph of 09/11/2019. IMPRESSION: Low probability for pulmonary embolus. Electronically signed by Kian Duvall 09/11/2019 3:57 PM
[2019-09-11] MEDS: KLONOPIN PO SCH (20:47)
[2019-09-11] MEDS ORDERED: LOVENOX SUBQ SCH (21:00)
[2019-09-12] MEDS: NORCO-5 PO PRN ×3 (03:35→19:25)
[2019-09-12] MEDS: ROBAXIN PO PRN ×2 (03:36→14:40)
[2019-09-12] MEDS: DUONEB (A & A) INH SCH ×6 (03:44→23:40)
[2019-09-12] MEDS: SYNTHROID PO SCH ×2 (05:33→06:38)
--- NOTE | 2019-09-12 06:09 | PULMONOLOGY CONSULTATION ---
DATE: 09/11/2019 REQUESTING CLINICIAN: Dr. Mathieu Najera. REASON FOR CONSULTATION: Help evaluate and treat. HISTORY OF PRESENT ILLNESS: Ms Brewer is a 79-year-old female with a 35 pack-year history for tobacco (nonsmoker since 1994) with a remote history of ARDS associated with a perforated colon. The patient reports she regained 80% of her lung function. She has done well since that time. She presented to the emergency room 09/09/2019 with rather abrupt onset shortness of breath. She noted some fullness in her abdomen which was different from the chest pain she had with her myocardial infarctions. Chest x-ray revealed pulmonary edema upon presentation. She reports she felt significantly better with Lasix and she is approximately 4 L negative during this hospitalization. PAST MEDICAL HISTORY: 1. History of ARDS as per above. 2. Prior history of tobacco use as per above. 3. Coronary artery disease status post myocardial infarction and coronary artery stenting. 4. Hypothyroidism. 5. Hypertension. 6. Gastroesophageal reflux disease. 7. Status post hysterectomy. 8. Status post back surgery. 9. Peripheral vascular disease. SOCIAL HISTORY: Prior tobacco use as per above. No alcohol use. She is and has is a caregiver for a chronically ill . FAMILY HISTORY: Positive for heart disease but no lung disease. REVIEW OF SYSTEMS: As noted in the HPI. She does report that she has lost some fluid and has more wrinkles in her arms following diuresis. PHYSICAL EXAMINATION: General: Reveals a well-developed, well-nourished white female resting comfortably and in no acute distress. Vital signs: Blood pressure 176/61, heart rate 88, respiratory rate 16, oxygen saturation 92%. HEENT: Pupils are equal and reactive. Oropharynx appears clear. Neck: Supple. Chest: Reveals faint crackles in the lung bases. Cardiac Exam: S1, S2. Abdomen: Soft. Extremities: Reveal trace edema. DIAGNOSTIC DATA: Echocardiogram reveals mild pulmonary hypertension, mild to moderate pulmonary hypertension with a PA pressure of 50. She has normal LV function with moderate mitral regurgitation. V/Q scan reveals slightly inhomogeneous distribution in the lung bases, making a low probability for pulmonary embolus. IMPRESSION: A 79-year-old with presentation with: 1. Acute hypoxemic respiratory failure. 2. Pulmonary edema/heart failure with normal ejection fraction. 3. Hypertension. 4. Abnormal V/Q scan. DISCUSSION: A 79-year-old with problems outlined above. The patient presented to the hospital with a systolic blood pressure in the 190s and she may have had a hypertensive crisis. She has been having significant difficulty with blood pressure and does take Celebrex. This may have contributed to her presentation. The V/Q scan is nonspecific and patient has had a history of severe acute respiratory distress syndrome which may have altered the V/Q scan. Except for the acute onset of shortness of breath, the presentation would not be typical for a pulmonary embolus. I will complete the workup with venous Dopplers. RECOMMENDATION: 1. Agree with diuresis as you are doing. 2. Consider additional medications for blood pressure control. 3. Complete workup with venous Dopplers of the lower extremities. cc: Luis A Ruelas MD
[2019-09-12 06:22] LABS: BASO# 0.03 X1000 (0.0-0.2); BASO% 0.4 % (0.0-0.8); EOS# 0.92 X1000 (0.0-0.7); EOS% 10.7 % (0.0-10.0); HEMATOCRIT 32.4 % (37.0-47.0); HEMOGLOBIN 9.7 g/dL (12.0-16.0); IMM GRAN# 0.03 X1000 (0.0-0.04); IMM GRAN% 0.4 % (0.0-0.5); LYMPH# 1.34 X1000 (1.2-3.4); LYMPH% 15.6 % (20.5-51.1); MCH 23.8 PG (27-31); MCHC 29.9 g/dL (33-37); MCV 79.4 FL (81-99); MONO# 0.97 X1000 (0.11-0.59); MONO% 11.3 % (1.7-9.3); MPV 10.1 FL (7.4-10.4); NEUT# 5.28 X1000 (1.4-6.5); NEUT% 61.6 % (42.2-75.2); PLT 401 X1000 (130-400); RBC 4.08 XMIL (4.2-5.4); RDW 14.5 % (11.5-14.5); WBC 8.57 X1000 (4.8-10.8)
[2019-09-12 06:48] LABS: ALB/GLOB RATIO 0.9; ALBUMIN 2.9 g/dL (3.5-5.0); CALCIUM 8.9 mg/dL (8.8-10.2); CREATININE 1.5 mg/dL (0.5-0.9); POTASSIUM 3.8 mmol/L (3.5-5.1); TOTAL BILIRUBIN 0.15 mg/dL (0.20-1.00); TOTAL PROTEIN 6.1 g/dL (6.3-8.3)
[2019-09-12 07:47] LABS: CALCIUM 8.8 mg/dL (8.8-10.2); CREATININE 1.4 mg/dL (0.5-0.9); POTASSIUM 4.1 mmol/L (3.5-5.1)
[2019-09-12] MEDS: ASPIRIN EC PO SCH (09:35)
[2019-09-12] MEDS: NEURONTIN PO SCH ×3 (09:35→18:01)
[2019-09-12] MEDS: TOPROL XL PO SCH ×2 (09:35→20:57)
[2019-09-12] MEDS: NORVASC PO SCH ×2 (09:35→20:57)
[2019-09-12] MEDS: PRILOSEC PO SCH (09:35)
[2019-09-12] MEDS: LASIX IV SCH (09:36)
[2019-09-12 10:08] LABS: HEMOGLOBIN A1C 7.3 % (4.8-6.0)
[2019-09-12] MEDS: ROCEPHIN 1 GM in NS 50 ML IV SCH (11:30)
--- NOTE | 2019-09-12 12:50 | PROGRESS NOTE ---
DATE: 09/12/2019 SUBJECTIVE: This morning, Ms. Brewer refers to be doing a lot better. She says she is breathing better than when she came. OBJECTIVE: Vital Signs: Blood pressure is 177/85, pulse of 90, respirations 16, temperature 97.3 degrees. General: Ms. Brewer is a 79-year-old, elderly, female. She is in bed. No distress. HEENT: Mucosa is pink and moist. Anicteric. Acyanotic. Neck: Supple. Chest: Good air entry bilaterally. A few crackles in the posterior lung lima. Cardiovascular: Regular rate and rhythm. GI: Abdomen was soft, nontender. Bowel sounds are present. Extremities: No pedal edema. CATERING STAFF MEMBER: The patient is awake, alert, oriented. There is no focal neurological deficit. LABORATORY DATA: WBC is 8.57, hemoglobin 9.7, platelet count of 400,000. The patient has microcytosis. Chemistry is also reviewed. Creatinine is 1.4. IMAGING: Imaging studies have all been reviewed. A V/Q scan, which was done yesterday, showed low probability. A chest x-ray showed new interstitial infiltrate in the right upper lobe, compatible with pulmonary edema or atypical pneumonia. ASSESSMENT: 1. Acute hypoxemic respiratory failure, most likely due to a combination of pulmonary edema with superimposed pneumonia. The patient is feeling a lot better now. 2. Acute pulmonary edema secondary to elevated blood pressure, improved. 3. Suspected superimposed bilateral pneumonia with elevated white blood cells on admission. The patient is on antimicrobial coverage. White blood cell count has normalized. 4. Severe uncontrolled hypertension. The patient is currently on metoprolol and amlodipine. We have added hydralazine and spironolactone for better blood pressure control. 5. History of coronary artery disease, status post stents in the past, currently asymptomatic. 6. Hypothyroidism. The patient is on Synthroid. 7. Congestive heart failure with preserved ejection fraction, with proBNP of 5216 on admission. The patient has been on diuretic therapy. Seems to be doing remarkably well. We will repeat the proBNP for tomorrow. 8. Diabetes mellitus with A1c of 7.3. I think the patient will do okay on oral hypoglycemic agents once she is discharged. For now, she will be on insulin regimen. cc: Danny Rodrigez MD
[2019-09-12] MEDS: APRESOLINE PO SCH ×2 (13:13→18:01)
[2019-09-12] MEDS: ALDACTONE PO SCH (13:13)
[2019-09-12] MEDS: KLONOPIN PO SCH (20:57)
[2019-09-12] MEDS: LASIX PO SCH (20:57)
[2019-09-13] MEDS: NORCO-5 PO PRN ×3 (00:37→13:56)
--- NOTE | 2019-09-13 03:11 | PULMONOLOGY PROGRESS NOTE ---
DATE: 09/12/2019 SUBJECTIVE: The patient is awake, alert, and conversant. She reports she has had a good day. OBJECTIVE: Vital Signs: The patient is approximately 1 L negative over the last 24 hours. BP 161/68, heart rate 93, respiratory rate 18, oxygen saturation 90% on nasal cannula. HEENT: Pupils are equal and reactive. Oropharynx appears clear. Neck: Supple. Chest: Reveals good air entry bilaterally. Cardiac: S1, S2. Abdomen: Soft. Extremities: Without edema. LABORATORIES: No new microbiology today. White blood count 8.6, hemoglobin 9.7, platelet count 401,000. Sodium 141, potassium 4.1, chloride 98, bicarbonate 24, BUN 27, creatinine 1.4. IMPRESSION: A 79-year-old with: 1. Acute hypoxemic respiratory failure. 2. Pulmonary edema with normal ejection fraction. 3. Hypertension. 4. Leukocytosis on presentation with resolution on antibiotics. PLAN: 1. Continue to balance intake and output. 2. Agree with additions of medication to control her blood pressure. 3. Follow up chest x-ray tomorrow morning. cc: Luis A Ruelas MD
[2019-09-13] MEDS: DUONEB (A & A) INH SCH ×4 (03:43→15:33)
[2019-09-13 05:58] LABS: BASO# 0.02 X1000 (0.0-0.2); BASO% 0.2 % (0.0-0.8); EOS# 0.96 X1000 (0.0-0.7); EOS% 11.6 % (0.0-10.0); HEMOGLOBIN 9.4 g/dL (12.0-16.0); IMM GRAN# 0.03 X1000 (0.0-0.04); IMM GRAN% 0.4 % (0.0-0.5); LYMPH# 1.52 X1000 (1.2-3.4); LYMPH% 18.4 % (20.5-51.1); MCHC 30.3 g/dL (33-37); MCV 79.3 FL (81-99); MONO# 0.94 X1000 (0.11-0.59); MONO% 11.4 % (1.7-9.3); MPV 9.7 FL (7.4-10.4); NEUT# 4.78 X1000 (1.4-6.5); PLT 374 X1000 (130-400); RBC 3.91 XMIL (4.2-5.4); RDW 14.5 % (11.5-14.5); WBC 8.25 X1000 (4.8-10.8)
[2019-09-13] MEDS: SYNTHROID PO SCH (06:12)
[2019-09-13 06:24] LABS: IRON SATURATION 8 %; TIBC 271 ug/dL; TOTAL IRON 21 ug/dL (49-151); UNBOUND IRON 250 ug/dL (112-346)
[2019-09-13 06:36] LABS: FERRITIN 59 ng/mL (13-150)
[2019-09-13 06:39] LABS: AGAP 14; ALB/GLOB RATIO 1.1; ALBUMIN 3.1 g/dL (3.5-5.0); ALKALINE PHOSPHATASE 92 U/L (32-104); BUN 28 mg/dL (8-22); CALCIUM 8.6 mg/dL (8.8-10.2); CHLORIDE 97 mmol/L (98-107); COSMO 286; CREATININE 1.2 mg/dL (0.5-0.9); ESTIMATED GFR 43; GLUCOSE 221 mg/dL (70-104); GOT 11 U/L (10-30); GPT 7 U/L (10-36); POTASSIUM 3.6 mmol/L (3.5-5.1); SODIUM 137 mmol/L (136-145); TCO2 26 mmol/L (25-35); TOTAL BILIRUBIN < 0.15 mg/dL (0.20-1.00); TOTAL PROTEIN 5.9 g/dL (6.3-8.3)
--- NOTE | 2019-09-13 08:04 | Diag Imaging Result Doc PS360 ---
CHEST-2 VIEWS - 09/13/2019 INDICATION: abnormal exam COMPARISON: 09/11/2019 FINDINGS: There has been improvement in the faint interstitial infiltrate in the right upper lobe. Stable platelike atelectasis in the lung bases bilaterally. Heart size is normal. No pneumothorax or pleural effusion. IMPRESSION: Improvement in the right upper lobe infiltrate/pneumonia. Electronically signed by Alex Mancuso 09/13/2019 8:02 AM
[2019-09-13] MEDS: TOPROL XL PO SCH (08:29)
[2019-09-13] MEDS: ASPIRIN EC PO SCH (08:29)
[2019-09-13] MEDS: NORVASC PO SCH (08:30)
[2019-09-13] MEDS: ALDACTONE PO SCH (08:30)
[2019-09-13] MEDS: LASIX PO SCH (08:30)
[2019-09-13] MEDS: NEURONTIN PO SCH ×2 (08:30→13:57)
[2019-09-13] MEDS: PRILOSEC PO SCH (08:30)
[2019-09-13] MEDS: APRESOLINE PO SCH ×2 (08:30→13:57)
[2019-09-13] MEDS: ROCEPHIN 1 GM in NS 50 ML IV SCH (08:33)
[2019-09-13] MEDS ORDERED: VENOFER 300 MG in NS 250 ML IV ONE (08:34)
[2019-09-13] MEDS: ROBAXIN PO PRN (08:45)
[2019-09-13 12:53] VITALS: BP 179/73
--- NOTE | 2019-09-15 15:03 | DISCHARGE SUMMARY ---
ADMISSION DATE: 09/09/2019 DISCHARGE DATE: 09/13/2019 DISPOSITION: Home. FOLLOW-UP: Dr. Donis. CONSULTATION DURING THIS ADMISSION: Pulmonary Medicine was consulted, patient was seen by Dr. Ruelas. INVASIVE PROCEDURES DONE DURING THIS ADMISSION: None. IMAGING STUDIES OF SIGNIFICANCE: 1. A chest x-ray did show pulmonary edema, may be underlying pneumonia. 2. Echocardiogram also showed ejection fraction of 60%, moderate mitral regurgitation. 3. Multiple chest x-rays were done subsequently. The one done on the day of discharge showed improved in the right upper lobe infiltrate/pneumonia. ADMISSION DIAGNOSIS: 1. Pulmonary venous hypertension, possibly pneumonia. 2. History of coronary artery disease status post myocardial infarction. 3. Gastroesophageal reflux disease. DIAGNOSIS AT THE TIME OF DISCHARGE: 1. Acute hypoxemic respiratory failure on presentation secondary to combination of pulmonary edema with superimposed pneumonia. 2. Acute pulmonary edema secondary to congestive heart failure with preserved ejection fraction precipitated by severe uncontrolled hypertension on admission. 3. Severe uncontrolled hypertension on presentation with a blood pressure of 191/84, that got slightly improved before discharge. 4. Hypothyroidism. 5. Diabetes mellitus with presenting A1c of 7.3. 6. Congestive heart failure with preserved ejection fraction. 7. History of coronary artery disease status post stent in the past, currently asymptomatic. 8. Microcytic anemia secondary to iron deficiency. The patient will need to follow up with her primary care doctor and possibly GI for the iron deficiency anemia work workup. 9. Renal failure, most likely cardiorenal in etiology. Creatinine continued to improve during the hospital course. DISCHARGE MEDICATIONS: 1. Celebrex 200 mg p.o. daily p.r.n. 2. Metoprolol succinate 100 mg b.i.d. 3. [address]mlodipine [address] 5[address] Levothyroxine 50 mcg p.o. daily. 6. Clonazepam 0.5 p.o. in the morning. 7. Gabapentin 300 mg 3 times per day. 8. Omeprazole 40 mg p.o. daily. 9. Methocarbamol 750 p.o. q.8 hours. 10. Spironolactone 25 mg p.o. daily. 11. Hydralazine 25 mg p.o. 3 times per day. 12. Lasix 20 mg b.i.d. PRESENTING COMPLAINT: Shortness of breath. HISTORY OF PRESENTING COMPLAINT: Ms. Brewer is a 79-year-old female who presented to the emergency department because of shortness of breath associated with orthopnea, was evaluated, was found to be hypoxemic with a presenting O2 saturation of 86% on room air. A chest x-ray also revealed pulmonary edema. Her ProBNP was 5216. Ms Brewer was admitted for medical management. HOSPITAL COURSE: Ms. Brewer was admitted to [facility], was started on IV diuretic therapy for the fluid overload. She was also started on antibiotics for possible pneumonia. She was initially started on antibiotics, however, her imaging studies were more consistent with pulmonary edema, so antibiotics were discontinued. Pulmonary Medicine also evaluated the patient. Ms. Brewer continued to diurese very adequately during the hospital course. She was a total negative balance of [id number] at the time of discharge. She was evaluated during the hospital course by her primary care doctor. At one point, I saw him with her. At the day of the discharge, Ms. Brewer refers to be doing a whole lot better. Blood pressures are better controlled than on admission. She feels shortness of breath has significantly resolved. She is ready for discharge. She is going to follow up with her primary care doctor. Ms. Brewer has been notified that her iron levels are low and that she will need to be evaluated by GI for EGD and possible colonoscopy. She will follow this up with her primary care doctor. All the discharge instructions have been discussed with her. We have also started her on new medications including spironolactone, hydralazine, and furosemide, and she will need to review these medications as well on her next visit with her primary care doctor. By the time Ms. Brewer was discharged, her ProBNP had declined to 1960 from 5219. All the discharge instructions have been discussed with her. She voiced understanding. Time spent for discharge 32 minutes cc: MD Denzel Huynh MD MTDD
--- NOTE | 2019-09-15 18:02 | Extremity Venous Study ---
PROCEDURE NAME: Venous U/S Bilateral Legs - 09/11/2019 REFERRING PHYSICIAN: Luis A Ruelas MD and Mathieu Najera MD. READING PHYSICIAN: Shahram Aburto MD UNIT DIRECTOR: Mikey. INDICATION: Abnormal V/Q lung scan indicating PTE. FINDINGS: The deep and superficial veins of both lower extremities were imaged throughout their course. They are compressible, patent, and without thrombus. INTERPRETATION: No deep venous thrombosis or superficial venous thrombosis of either lower extremity. cc: MD Luis A Yeung MD
== END 2019-09-13 15:44 | disposition home health service (06) | DRG 291 ==
LOC: SUPCPDRO → ED 07:17 → 2N 12:32 → SUATTDRO 12:32
PROVIDERS: ATTEND Internal Medicine